=== PATIENT | male | born 1970 | race Caucasian/White ===

== ENCOUNTER 2016-12-14 16:11 | Emergency (ER) | payer MEDICAID ==
[2016-12-14] MEDS ORDERED: Sodium Chloride 0.9% 1,000 ML IV ONE (16:35)
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
[2016-12-14] MEDS ORDERED: Magnesium Citrate 1.75 GM/300 mL Bottle ONE (16:58)
[2016-12-14] MEDS: Magnesium Citrate 1.75 GM/300 mL Bottle PO ONE (17:00)
== END 2016-12-14 17:25 | disposition left against medical advice (07) ==
LOC: ER 16:11
DX: K59.00 Constipation, unspecified (principal); R10.9 Unspecified abdominal pain; I10 Essential (primary) hypertension
CPT/HCPCS: Z7502